=== PATIENT | female | born 1970 | race Caucasian/White ===

== ENCOUNTER 2016-09-08 11:18 | Emergency (ER) | payer OTHER ==
[~2016-09-08] VITALS: Ht 170.2 cm; Wt 133.6 kg
[~2016-09-08 11:18] MED LIST: ACET1CAP16 OG; AMPH20TA2 PO; COEN100C11 PO; LMC100 PO; LORA-741 PO; MAGN1TAB16 PO; MULT-1023 PO; OREGCAP PO; TAUR500C PO; TOPI50TA16 PO; VENL150T33 PO; [UNRECOGNIZED DRUG - CODE] PO; [UNRECOGNIZED DRUG - CODE] PO; [UNRECOGNIZED DRUG - OTHER] PO
[2016-09-08 11:21] VITALS: TEMP 37; Ht 170.2 cm; Wt 133.6 kg
[2016-09-08] MEDS ORDERED: KETOROLAC TROMETHAMINE 30 MG/ML VIAL IV STA (11:43)
[2016-09-08] MEDS ORDERED: HYDROCODONE/ACETAMOPHEN 5/325MG TAB PO STA (12:01)
[2016-09-08 12:14] LABS: INR 0.9 (0.9-1.1); PARTIAL THROMBOPLASTIN RATIO 1.1; PROTHROMBIN TIME (PATIENT) 10.1 SECONDS (9.0-12.0)
--- NOTE | 2016-09-08 12:16 | DIAGNOSTIC IMAGING REPORT ---
RIGHT ANKLE MIN 3 VIEWS ROUTINE CLINICAL HISTORY: Right ankle pain. COMPARISON: None. DISCUSSION: No acute fractures are visualized. There is Achilles insertional and plantar calcaneal spur. There is a corticated ossicle projected anterior to the tibiotalar joint. There are small corticated ossicle projected posterior to the talus. IMPRESSION: Calcaneal spurring. No acute fractures. No evidence of erosive disease. Electronically signed by: Osmany Pastrana M.D. 09/08/2016 12:14 PM Dictated Date/Time: 09/08/2016 12:13 PM
--- NOTE | 2016-09-08 12:18 | DIAGNOSTIC IMAGING REPORT ---
RIGHT FOOT MIN 3 VIEWS ROUTINE CLINICAL HISTORY: Right foot pain COMPARISON: None. DISCUSSION: There is calcaneal spurring. There are no acute fractures. There is a small talar beak. The bony mineralization appears normal. There are no erosive changes. IMPRESSION: No fractures, dislocations, or erosive changes are visualized. Electronically signed by: Osmany Pastrana M.D. 09/08/2016 12:16 PM Dictated Date/Time: 09/08/2016 12:14 PM
--- NOTE | 2016-09-08 12:38 | DIAGNOSTIC IMAGING REPORT ---
RIGHT KNEE 1 OR 2 VIEWS ROUTINE CLINICAL HISTORY: Right knee pain COMPARISON: None. DISCUSSION: No acute fractures are visualized. There are mild osteoarthritic changes. No destructive lesions are evident. IMPRESSION: Osteoarthritic change. No acute fractures. Electronically signed by: Osmany Pastrana M.D. 09/08/2016 12:36 PM Dictated Date/Time: 09/08/2016 12:36 PM
--- NOTE | 2016-09-08 12:45 | DIAGNOSTIC IMAGING REPORT ---
ULTRASOUND RIGHT VENOUS DOPP LOWER EXT UNILAT CLINICAL HISTORY: Right leg pain COMPARISON STUDY: No previous studies for comparison. FINDINGS: Real-time and color flow Doppler imaging were performed. Flow was seen within the femoral, popliteal and calf veins with no intraluminal thrombus demonstrated. The saphenous vein is patent. There is a right popliteal cyst measuring 58 x 10 x 30 mm. IMPRESSION: No evidence of right lower extremity DVT Electronically signed by: Osmany Pastrana M.D. 09/08/2016 12:43 PM Dictated Date/Time: 09/08/2016 12:42 PM
[2016-09-08] MEDS ORDERED: HYDR-5688 PO (13:18)
[2016-09-08 13:31] VITALS: BP 111/81; PULSE 71; O2SAT 97
--- NOTE | 2016-09-08 14:20 | EMERGENCY ROOM VISIT NOTE ---
History First contact with patient: 11:30 Chief Complaint: LEG PAIN,LEG INJURY Stated Complaint: FOOT PAIN-PAIN GOES UP LEG INTO KNEE/ANKLE History of Present Illness The patient is a 46 year old female who presents to the Emergency Room with complaints of sudden onset of foot pain 10 days ago which radiates up to her ankle and into the back of her knee. She denies any known injury. The patient states she was treated for heel spurs in 2013. She saw a buoy tender at that time who gave her a steroid injection into her foot. The patient states that she continues to wear inserts in her shoes. She has been wearing the same inserts since the onset of her symptoms and 2013. The patient denies any hip pain the patient denies any chest pain or shortness of breath. The patient does admit to feeling a lump behind her knee. She admits to tobacco use. The patient denies any hormone use or recent travel. The patient denies any history of blood clots. Review of Systems 10 system review was performed and was negative unless stated otherwise history of present illness. Past Medical/Surgical History Medical Problems: (1) Cervicalgia (2) Colitis (3) Diverticulitis of colon (4) Epistaxis Family History Patient reports no known family medical history. Social History Smoking Status: Current Every Day Smoker Alcohol Use: occasionally Drug Use: none Marital Status: in relationship Occupation Status: employed Current/Historical Medications Scheduled Amphetamine-Dextroamphetamine 20MG (Adderall 20MG), 20 MG PO TID Lamotrigine (Lamotrigine), 100 MG PO BID Topiramate (Topamax), 50 MG PO BID Scheduled PRN Hydrocodone/Acetaminophen 5MG/325MG (Zirconia 5MG/325MG), 1-2 TABLET PO Q6 PRN for Pain Lorazepam (Ativan), 0.5 MG PO TID PRN for Anxiety Allergies Coded Allergies: NO KNOWN DRUG ALLERGIES (Verified Allergy, Unknown, none, 09/08/16) Gluten (Verified Adverse Reaction, Unknown, GI SYMPTOMS, 09/08/16) Physical Exam Vital Signs Date Time Temp Pulse Resp B/P Pulse Ox O2 Delivery O2 Flow Rate FiO2 09/08/16 13:31 71 18 111/81 97 09/08/16 11:21 37.0 86 18 118/79 100 Room Air Physical Exam GENERAL: Obese 46-year-old white female appears in no acute distress. MENTAL Status: Alert and oriented 3. NECK: Supple, no lymphadenopathy noted. No carotid bruits noted. LUNGS: Clear auscultation without wheezes rales or rhonchi. CARDIAC: Regular rate and rhythm without murmur. Pulses is full and equal throughout. RIGHT KNEE: No gross bony deformity noted. There is a palpable lump in the popliteal region. There is no erythema noted. No ligament instability noted. Full range of motion. RIGHT LOWER LEG: The patient has some tenderness palpation in the posterior calf. No palpable cords noted. No erythema or edema noted. RIGHT FOOT/ANKLE: No gross bony deformity noted. The patient has tenderness palpation over the plantar surface of the calcaneus as well as the lateral aspect. She also has some tenderness palpation over the lateral malleolus. Mild edema noted over this area. No erythema. Medical Decision & Procedures ER Provider Diagnostic Interpretation: RIGHT KNEE 1 OR 2 VIEWS ROUTINE CLINICAL HISTORY: Right knee pain COMPARISON: None. DISCUSSION: No acute fractures are visualized. There are mild osteoarthritic changes. No destructive lesions are evident. IMPRESSION: Osteoarthritic change. No acute fractures. Electronically signed by: Osmany Pastrana M.D. 09/08/2016 12:36 PM Dictated Date/Time: 09/08/2016 12:36 PM RIGHT ANKLE MIN 3 VIEWS ROUTINE CLINICAL HISTORY: Right ankle pain. COMPARISON: None. DISCUSSION: No acute fractures are visualized. There is Achilles insertional and plantar calcaneal spur. There is a corticated ossicle projected anterior to the tibiotalar joint. There are small corticated ossicle projected posterior to the talus. IMPRESSION: Calcaneal spurring. No acute fractures. No evidence of erosive disease. Electronically signed by: Osmany Pastrana M.D. 09/08/2016 12:14 PM Dictated Date/Time: 09/08/2016 12:13 PM RIGHT FOOT MIN 3 VIEWS ROUTINE CLINICAL HISTORY: Right foot pain COMPARISON: None. DISCUSSION: There is calcaneal spurring. There are no acute fractures. There is a small talar beak. The bony mineralization appears normal. There are no erosive changes. IMPRESSION: No fractures, dislocations, or erosive changes are visualized. Electronically signed by: Osmany Pastrana M.D. 09/08/2016 12:16 PM Dictated Date/Time: 09/08/2016 12:14 PM ULTRASOUND RIGHT VENOUS DOPP LOWER EXT UNILAT CLINICAL HISTORY: Right leg pain COMPARISON STUDY: No previous studies for comparison. FINDINGS: Real-time and color flow Doppler imaging were performed. Flow was seen within the femoral, popliteal and calf veins with no intraluminal thrombus demonstrated. The saphenous vein is patent. There is a right popliteal cyst measuring 58 x 10 x 30 mm. IMPRESSION: No evidence of right lower extremity DVT Electronically signed by: Osmany Pastrana M.D. 09/08/2016 12:43 PM Laboratory Results Test 09/08/16 11:55 Prothrombin Time 10.1 SECONDS (9.0-12.0) Prothromb Time International Ratio 0.9 (0.9-1.1) Activated Partial Thromboplast Time 29.7 SECONDS (21.0-31.0) Partial Thromboplastin Ratio 1.1 Medications Administered Medications (Trade) Dose Ordered Sig/Janak Route Start Time Stop Time Status Last Admin Dose Admin Acetaminophen/ Hydrocodone Bitart (Zirconia 5/325 Tab) 1 tab NOW STAT PO 09/08/16 12:01 09/08/16 12:04 DC 09/08/16 12:14 1 TAB ED Course The patient was evaluated. The patient was given Zirconia 5/325 mg one tablet by mouth for pain. X-rays of the right foot, ankle, knee were ordered and interpreted by the radiologist and myself as above without any acute findings except for heel spur. Venous Doppler of the right lower leg was ordered and interpreted by the radiologist as above without any evidence of DVT. There was evidence of a popliteal cyst. The patient was informed of all findings. The patient was discharged home in stable condition. Medical Decision Differential diagnosis include foot fracture versus spur versus foot sprain. Leg differential include strain, DVT, simple partial phlebitis, popliteal cyst, sprain Impression Primary Impression: Heel spur Additional Impression: Popliteal cyst Departure Information Dispostion Home / Self-Care Condition GOOD Prescriptions Hydrocodone/Acetaminophen 5MG/325MG (Zirconia 5MG/325MG) Tab 1-2 TABLET PO Q6 Y for Pain, #20 TAB For Initial Treatment Prov: Shari Owens PA-C 09/08/16 Referrals Omari Pond III, M.D. (PCP) Forms HOME CARE DOCUMENTATION FORM, IMPORTANT VISIT INFORMATION [facility] Additional Instructions Take Tylenol as needed for pain. Take Zirconia as needed for more severe pain. Do not drive while taking the Zirconia. Follow-up with a buoy tender as soon as possible for definitive care of the heel spur. If the pain in your knee persist , recommend follow-up with orthopedics. Problem Qualifiers Primary Impression: Heel spur Laterality: right Qualified Codes: M77.31 - Calcaneal spur, right foot Additional Impression: Popliteal cyst Laterality: right Qualified Codes: M71.21 - Synovial cyst of popliteal space [Garcia], right knee
== END 2016-09-08 13:31 | disposition home or self-care (01) ==
LOC: C.EDB 11:20 → C.EDD 13:31
DX: M77.31 Calcaneal spur, right foot (principal)